=== PATIENT | female | born 1985 | race Caucasian/White ===

== ENCOUNTER 2018-12-26 10:33 | Inpatient (IN) | payer OTHER ==
[~2018-12-26] VITALS: Ht 172 cm; Wt 77.7 kg
[2018-12-26] MEDS ORDERED: RINGERS SOLUTION,LACTATED 1,000 ML IV ONE ×2 (10:34→10:45)
[2018-12-26] MEDS ORDERED: PREN1TAB80 PO (10:40)
[2018-12-26] MEDS ORDERED: CITRIC ACID/SODIUM CITRATE 30 ML SOLUTION UDCUP PO ONE (10:45)
[2018-12-26] MEDS ORDERED: METOCLOPRAMIDE HCL 5 MG/ML 2 ML VIAL IVP ONE (10:45)
[2018-12-26 11:22] LABS: BASOPHILS % (AUTO) 0.7 % (0.0-2.0); EOSINOPHILS % (AUTO) 1.1 % (1.0-6.0); HEMATOCRIT 37.2 % (36-46); LYMPHOCYTES # (AUTO) 1.5 K/uL (1.0-4.8); LYMPHOCYTES % (AUTO) 19.8 % (22.0-44.0); MEAN CORPUSCULAR HEMOGLOBIN 27.7 pg (26.0-34.0); MEAN CORPUSCULAR HGB CONC 32.4 G/dL (31.0-37.0); MEAN CORPUSCULAR VOLUME 86 fL (80-100); MONOCYTES # (AUTO) 0.5 K/uL (0.1-1.0); MONOCYTES % (AUTO) 7.2 % (2.0-9.0); NEUTROPHILS # (AUTO) 5.3 K/uL (1.8-7.7); NEUTROPHILS % (AUTO) 71.2 % (40.0-70.0); PLATELET COUNT (AUTO) 129 K/uL (150-450); RED BLOOD CELL COUNT(AUTO) 4.34 MIL/uL (4.00-5.20); RED CELL DISTRIBUTION WIDTH 14.3 % (11.5-14.5)
[2018-12-26] MEDS ORDERED: BUPIVACAINE HCL/DEX-WATER/PF 0.75% 2 ML AMP ONE (11:55)
[2018-12-26] MEDS ORDERED: ACETAMINOPHEN 1000 MG/ISO-OSM 100 ML IV ONE (11:55)
[2018-12-26] MEDS ORDERED: FentaNYL CITRATE-PF 100 MCG/2 ML VIAL ONE (11:55)
[2018-12-26] MEDS ORDERED: MORPHINE SULFATE/PF 0.5 MG/ML 10 ML AMP ONE (11:55)
[2018-12-26] MEDS ORDERED: DEXAMETHASONE SOD PHOS 4 MG/ML VIAL IVP PRN (12:45)
[2018-12-26] MEDS ORDERED: NALBUPHINE HCL 10 MG/ML VIAL IVP PRN ×3 (12:45)
[2018-12-26] MEDS ORDERED: NALOXONE HCL 0.4 MG/ML VIAL IVP PRN (12:45)
[2018-12-26] MEDS ORDERED: FentaNYL CITRATE-PF 100 MCG/2 ML VIAL IVP PRN (12:45)
[2018-12-26] MEDS ORDERED: MORPHINE SULFATE 10 MG/ML SYRINGE IVP PRN (12:45)
[2018-12-26] MEDS ORDERED: DiphenhydrAMINE HCL 50 MG/ML VIAL IVP PRN ×2 (12:45)
[2018-12-26] MEDS ORDERED: ONDANSETRON HCL 4 MG/2 ML VIAL IVP PRN ×2 (12:45)
[2018-12-26] MEDS ORDERED: GUM MASTIC/STORAX/MSAL/ALCOHOL LIQUID 0.67 ML VIAL TP ONE (13:06)
[2018-12-26] MEDS ORDERED: OXYTOCIN 30 UNITS/LACT RINGERS 500 ML IV ONE (14:13)
[2018-12-26] MEDS: RINGERS SOLUTION,LACTATED 1,000 ML IV SCH ×2 (14:13→22:12)
[2018-12-26] MEDS ORDERED: LANOLIN 7 GM OINTMENT TP PRN (14:15)
[2018-12-26 14:25] VITALS: BP 112/63
[2018-12-26] MEDS: KETOROLAC TROMETHAMINE 15 MG/ML VIAL IVP PRN ×2 (18:10→23:53)
[2018-12-26] MEDS ORDERED: OXYGEN THERAPY IH SCH ×3 (20:00)
[2018-12-26] MEDS: ACETAMINOPHEN 1000 MG/ISO-OSM 100 ML IV SCH (20:59)
[2018-12-27] MEDS: ACETAMINOPHEN 1000 MG/ISO-OSM 100 ML IV SCH (04:54)
[2018-12-27] MEDS ORDERED: OXYTOCIN 10 UNITS/ML VIAL IM ONE (05:31)
[2018-12-27] MEDS ORDERED: EPHEDrine SULFATE 50 MG/ML VIAL IM ONE (05:31)
[2018-12-27] MEDS ORDERED: ONDANSETRON HCL 4 MG/2 ML VIAL IVP ONE (05:31)
[2018-12-27] MEDS ORDERED: 0.9% SODIUM CHLORIDE 10 ML VIAL IVP ONE (05:31)
[2018-12-27 05:56] LABS: BASOPHILS % (AUTO) 0.2 % (0.0-2.0); EOSINOPHILS % (AUTO) 1.1 % (1.0-6.0); HEMATOCRIT 29.2 % (36-46); LYMPHOCYTES # (AUTO) 1.3 K/uL (1.0-4.8); MEAN CORPUSCULAR HEMOGLOBIN 29.2 pg (26.0-34.0); MEAN CORPUSCULAR HGB CONC 34.3 G/dL (31.0-37.0); MEAN CORPUSCULAR VOLUME 85 fL (80-100); MONOCYTES # (AUTO) 0.8 K/uL (0.1-1.0); MONOCYTES % (AUTO) 8.1 % (2.0-9.0); NEUTROPHILS # (AUTO) 7.1 K/uL (1.8-7.7); NEUTROPHILS % (AUTO) 76.6 % (40.0-70.0); PLATELET COUNT (AUTO)-OB 107 K/uL (150-450); RED BLOOD CELL COUNT(AUTO) 3.43 MIL/uL (4.00-5.20); RED CELL DISTRIBUTION WIDTH 13.9 % (11.5-14.5)
[2018-12-27] MEDS: KETOROLAC TROMETHAMINE 15 MG/ML VIAL IVP PRN (06:32)
[2018-12-27] MEDS: MAGNESIUM HYDROXIDE SUSPENSION 30 ML UDCUP PO SCH ×2 (10:16→20:50)
[2018-12-27] MEDS ORDERED: OxyCODONE HCL/ACETAMINOPHEN 5-325 MG TABLET PO PRN ×2 (12:00)
[2018-12-27] MEDS: IBUPROFEN 800 MG TABLET PO PRN (15:15)
[2018-12-28] MEDS: MAGNESIUM HYDROXIDE SUSPENSION 30 ML UDCUP PO SCH (08:38)
[2018-12-28] MEDS ORDERED: DSS100 PO (09:41)
[2018-12-28] MEDS ORDERED: IBUP-2071 PO (09:42)
[2018-12-28] MEDS ORDERED: FERR-89 PO (09:43)
[2018-12-28] MEDS ORDERED: PERCT PO (09:44)
[2018-12-28] MEDS: IBUPROFEN 800 MG TABLET PO PRN (10:57)
== END 2018-12-28 15:05 | disposition home or self-care (01) | DRG 788 ==
LOC: 4S 10:33 → OBSVTOIN 10:33
PROVIDERS: ADMIT Obstetrics & Gynecology; ATTEND Obstetrics & Gynecology
PROC: 10D00Z1 Extraction of Products of Conception, Low, Open Approach (ICD-10-PCS; principal; 2018-12-26)
DX: O34.211 Maternal care for low transverse scar from previous cesarean delivery (principal); O69.81X0 Labor and delivery complicated by cord around neck, without compression, not applicable or unspecified; Z3A.39 39 weeks gestation of pregnancy; Z37.0 Single live birth
CPT/HCPCS: 86850; 86900; 86901; 87081; J0131; J0690; J1885; J2274; J2405; J2590; J2765; J3010; J3490; J7120